=== PATIENT | male | born 2005 | race Caucasian/White ===

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

== ENCOUNTER 2024-02-08 19:09 | Emergency (ER) | payer MEDICAID, OTHER ==
[~2024-02-08] VITALS: Ht 182.9 cm; Wt 176.7 kg
[2024-02-08 22:08] VITALS: BP 135/74; TEMP 98.7; O2SAT 98
== END 2024-02-08 22:13 | disposition home or self-care (01) ==
LOC: M ED 19:09
DX: H61.23 Impacted cerumen, bilateral (principal); Z79.899 Other long term (current) drug therapy

== ENCOUNTER → 2024-02-25 | Outpatient (CLI) | payer OTHER | LOC: M WUC 11:58 | PROVIDERS: ATTEND Physician Assistant | DX: J45.909 Unspecified asthma, uncomplicated (principal) ==

== ENCOUNTER → 2024-08-27 | Outpatient (CLI) | payer OTHER | LOC: M WUC 11:23 | PROVIDERS: ATTEND Physician Assistant | DX: M25.572 Pain in left ankle and joints of left foot (principal); M79.672 Pain in left foot ==